=== PATIENT | male | born 1975 | race Two or more races ===

== ENCOUNTER 2024-06-07 19:44 | Emergency (ER) | payer MEDICAID, SELFPAY ==
[2024-06-07 19:56] VITALS: BP 138/91; PULSE 113; RESP 20; TEMP 36.9; O2SAT 93
--- NOTE | 2024-06-07 20:06 | XR_ITS ---
Examination: PA lateral chest 2 views Technique: Upright AP lateral chest 2 views Exam date and time: 06/07/2024 2020 hrs. Comparison October 03, 2023 Indications: Coughing shortness of breath beginning 2 weeks ago. Findings: Stable pulmonary nodule right upper lobe Bilateral perihilar and bibasilar pneumonia Normal heart size Impression: Significant bilateral pneumonia
--- NOTE | 2024-06-07 20:07 | PD.EDRME ---
Rapid Medical Screening Exam [facility] Arrival date/time: 06/07/24 19:44 49M with history of drug/alcohol use presents to ED with 2 weeks of cough and intermittent SOB. Chief Complaint: Flu Like Symptoms Vital signs: Vital Signs Temperature 98.5 F 06/07/24 19:56 Pulse Rate 113 H 06/07/24 19:56 Respiratory Rate 20 06/07/24 19:56 Blood Pressure 138/91 H 06/07/24 19:56 Pulse Oximetry (%) 93 L 06/07/24 19:56 Oxygen Delivery Method Room Air 06/07/24 19:56
--- NOTE | 2024-06-07 20:10 | EDNOTE_ITS ---
Upper Respiratory Inf. RME/HPI General Chief Complaint: Flu Like Symptoms Stated Complaint: FEVER, COUGH, CONGESTION, GLOVER Time Seen by Provider: 06/07/24 20:10 Source: patient Arrival date/time: 06/07/24 19:44 Mode of arrival: ambulatory Limitations: no limitations RME / HPI RME / HPI Narrative: 06/07/24 19:44 49M with history of drug/alcohol use presents to ED with 2 weeks of cough and intermittent SOB. Dr. Lee?s Main ED Evaluation: 49-year-old patient presents to the emergency department with a two-week history of chest discomfort, productive cough with green sputum, headache, fever, and nasal congestion. Initially, symptoms were mild; however, the patient reports a significant worsening today, now experiencing increased shortness of breath. The cough remains productive, with no associated hemoptysis. The patient denies recent travel, sick contacts, or known exposure to tuberculosis. No history of asthma, COPD, or cardiac disease is reported. Past medical history is notable for a prior left closed tibial plateau fracture. Related Data Previous Rx's ?Medication ?Instructions ?Recorded acetaminophen 325 mg tablet 650 mg (2 x 325 mg) PO TID PRN 06/08/24 (Tylenol) fever 5 days #30 tabs albuterol sulfate 90 mcg/actuation 2 puff inhalation Q 6H PRN cough 5 06/08/24 aerosol inhaler days #8.5 grams amoxicillin 875 mg-potassium 1 tab PO BID #20 tabs clavulanate 125 mg tablet Allergies Allergy/AdvReac Type Severity Reaction Status Date / Time NKA* Allergy Uncoded 05/03/17 14:15 Review of Systems Review of Systems Systems Reviewed: All systems reviewed, normal except as documented Past Medical History Past Medical History CARDIAC: Negative Congestive Heart Failure RESPIRATORY: Negative Chronic Obstructive Pulmonary Disease (COPD) GENITOURINARY: Negative Renal Disease ENDOCRINE: Negative Diabetes Mellitus Type 1 or Diabetes Mellitus Type 2 Social History SMOKING STATUS: Former smoker ED Exam General Limitations: Present no limitations General appearance: Present alert and in no apparent distress Head Head exam: Present atraumatic Eye Eye exam: Present normal appearance, PERRL and EOMI ENT ENT exam: Present normal exam, normal oropharynx and mucous membranes moist Neck Neck exam: Present normal inspection, full ROM and trachea midline Chest Chest inspection: Present normal inspection and symmetric chest wall rise Respiratory Respiratory exam: Present normal lung sounds bilaterally Cardiovascular Cardiovascular exam: Present regular rate, normal rhythm and normal heart sounds Abdominal Exam Abdominal exam: Present soft and normal bowel sounds Extremities Exam Extremities exam: Present normal inspection and full ROM Back Exam Back exam: Present normal inspection and full ROM Neurological Exam Neurological exam: Present alert, oriented X3 and CN II-XII intact Psychiatric Psychiatric exam: Present normal affect and normal mood Skin Skin exam: Present warm, dry, intact and normal color Course Course Course Narrative: 2212: Sepsis alert initiated. Orders made at this time are congruent with ED Adult Sepsis Order List. Re-evaluation is to be completed. 2341: NS IVF and Rocephin started. Quality Measures Possible source: pulmonary Blood cultures ordered: yes Antibiotic ordered: Yes Pertinent labs: 06/07/24 20:50 Lactic Acid 1.4 mMol/L (0.4-2.0) Procalcitonin 0.14 ng/ml (0.0-0.49) sepsis Orders Category Date Time Status Bedside COVID-19 Antigen Test NOW Care 06/07/24 20:07 Completed Bedside Influenza A&B Antigen Test NOW Care 06/07/24 19:48 Completed Bedside Influenza A&B Antigen Test NOW Care 06/07/24 20:07 Completed XR chest 2V Stat Exams 06/07/24 20:06 Completed BNP [B-Type Natriuretic Peptide] Stat Lab 06/07/24 20:50 Completed CBC Stat Lab 06/07/24 20:50 Completed CMP [Comprehensive Metabolic Panel] Stat Lab 06/07/24 20:50 Completed Lactate (Lactic Acid) Stat Lab 06/07/24 20:50 Completed Procalcitonin Stat Lab 06/07/24 20:50 Completed Troponin I Stat Lab 06/07/24 20:50 Completed Azithromycin Inj [Zithromax Inj] 500 mg Med 06/07/24 23:16 Discontinued Sodium Chloride 0.9% 250 ml [Ns] 250 ml IV QDAY Azithromycin Inj [Zithromax Inj] 500 mg Med 06/08/24 21:00 Discontinued Sodium Chloride 0.9% 250 ml [Ns] 250 ml IV QDAY@2100 Azithromycin Inj [Zithromax Inj] 500 mg Med 06/07/24 23:30 Discontinued Sodium Chloride 0.9% 250 ml [Ns] 250 ml IV X1 Sodium Chloride 0.9% 1000 ml [Ns] 2,504 ml Med 06/07/24 23:12 Discontinued IV 1,001.6 mls/hr cefTRIAXone [Rocephin] 1,000 mg Med 06/07/24 23:16 Discontinued SODIUM CHLORIDE 0.9% (Popper) [Ns 0.9% (P)] 50 ml IV X1 Vital Signs Vital signs: Vital Signs Temperature 98.5 F 06/07/24 19:56 Pulse Rate 113 H 06/07/24 19:56 Respiratory Rate 20 06/07/24 19:56 Blood Pressure 138/91 H 06/07/24 19:56 Pulse Oximetry (%) 93 L 06/07/24 19:56 Oxygen Delivery Method Room Air 06/07/24 19:56 Upper Respiratory Infection MDM Narrative MDM Narrative:: While in the emergency department the patient screened positive for sepsis. He is placed into a room and IV fluids are started. Patient is treated with ceftriaxone after all cultures. Repeat heart rate at approximately 1110 is down to 105 and he is 95% on room air after DuoNeb treatment. Suspect pneumonia based on the fact that he has had green sputum for the last 2 weeks. White count is 19,000. No abdominal pain and otherwise procalcitonin/lactate is normal. 0307: Patient states he is feeling significantly better. He is able to ambulate without becoming hypoxic. Patient is stable to be discharged home. Scribe Attestation: Vidhi Barroso, am scribing for and in the presence of Dr. Lee. Provider Notation: Although this document has been carefully reviewed, there may still be some phonetic and other typographical errors. These errors are purely grammatical due to imperfections in the software program and should not be construed in any way to compromise the substance of the patient's medical care during this visit. Patient data External records reviewed:: [facility] previous records Clinical information provided by:: patient Social determinants that could affect healthcare access:: substance use Patient has the following chronic illnesses:: see PMH How is presenting disease/condition affected by chronic disease/condition?: uneffected by Evaluation data The following diagnostics were reviewed and interpreted by me:: lab results and radiology exam(s) Lab and/or radiology exams considered but not ordered:: na Interpretation Summary: Examination: PA lateral chest 2 views Technique: Upright AP lateral chest 2 views Exam date and time: 06/07/2024 2020 hrs. Comparison October 03, 2023 Indications: Coughing shortness of breath beginning 2 weeks ago. Findings: Stable pulmonary nodule right upper lobe Bilateral perihilar and bibasilar pneumonia Normal heart size Impression: Significant bilateral pneumonia Dictated By: Gregg Willis MD Medications / Prescriptions Medications or Prescriptions considered but not ordered:: na Medication administrations:: Medication Administration History Discontinued Medications Sodium Chloride (Ns) 2,504 mls @ 1,001.6 mls/hr IV .Q2H30M ONE; Protocol Stop: 06/08/24 01:41 Last Infusion: 06/08/24 02:13 Dose: Infused Documented By: Admin: 06/07/24 23:43 Dose: 1,001.6 mls/hr Documented By: EF Ceftriaxone Sodium 1,000 mg/ (Sodium Chloride) 50 mls @ 100 mls/hr IV X1 ONE Stop: 06/07/24 23:45 Last Infusion: 06/08/24 00:12 Dose: Infused Documented By: Admin: 06/07/24 23:42 Dose: 100 mls/hr Documented By: EF Azithromycin 500 mg/ Sodium (Chloride) 250 mls @ 250 mls/hr IV QDAY JANIS Stop: 06/14/24 23:15 Azithromycin 500 mg/ Sodium (Chloride) 250 mls @ 250 mls/hr IV X1 ONE Stop: 06/08/24 00:29 Last Infusion: 06/08/24 01:17 Dose: Infused Documented By: Admin: 06/08/24 00:17 Dose: 250 mls/hr Documented By: EF Azithromycin 500 mg/ Sodium (Chloride) 250 mls @ 250 mls/hr IV QDAY@2100 JANIS Stop: 06/14/24 23:15 see above Consultations Consultation(s) initiated? (list below): No Diagnosis Upper Respiratory Differential Diagnosis: upper respiratory infection, viral infection and influenza Most likely diagnosis given after review of the tests above:: see clinical impression below Admission Indicated Admission indicated?: not indicated Admission Request Was there a request for admission?: No Disposition Plan Disposition Plan: Discharge Discharge Attestation Discharge Attestation: The patient and all family members were given an opportunity to ask questions and understood the discharge instructions. Discharge instructions specifically effects, indications for sooner follow up or return to the emergency department, and the expected course of current diagnosis. Patient condition: Stable Critical Care Time Critical Care Time Critical Care Time: Yes Total Critical Care Time (min.): 35 Attestation: The high probability of sudden, clinically significant deterioration in the patient?s condition required the highest level of my preparedness to intervene urgently. ? The services I provided to this patient were to treat and/or prevent clinically significant deterioration. Services included the following: chart data review, reviewing nursing notes and/or old charts, documentation time, executive talent acquisition consultant collaboration regarding findings and treatment options, medication orders and management, direct patient care, vital sign assessments and ordering, interpreting and reviewing diagnostic studies and lab tests. ? Aggregate critical care time includes only time during which I was engaged in work directly related to the patient?s care, as described above, whether at bedside or elsewhere in the Emergency Department. It did not include time spent performing other reported procedures or the services of residents, students, nurses or physician assistants. Discharge Plan Plan Patient Disposition: HOME (Self Care) Patient condition on transfer: Stable Prescriptions/Referrals Prescriptions/Med Rec: New amoxicillin-pot clavulanate 875-125 mg tablet 1 tab PO BID Qty: 20 0RF albuterol sulfate 90 mcg/actuation HFA aerosol inhaler 2 puff inhalation Q6H PRN (Reason: cough) 5 Days Qty: 8.5 0RF Rx Instructions: administer with spacer acetaminophen [Tylenol] 325 mg tablet 650 mg PO TID PRN (Reason: fever) 5 Days Qty: 30 0RF Referrals: No Primary/Family,Physician [Primary Care Provider] - In 1 week Problem List Clinical Impression: Pneumonia Patient/Caregiver Discharge Instructions Education Materials: ED Pneumonia (Adult) Additional Instructions: Please take antibiotics as prescribed. You can use the inhaler for cough 4 times a day. Is important that you finish the antibiotics. Avoid smoking or vaping or can make your symptoms worse. You can take [id number] Tylenol 650 mg 4 times a day as needed while you are on antibiotics. On your x-ray they saw an incidental pulmonary nodule that has been there and it has not grown in size. However you will need to follow-up with your primary care in the next 2 weeks so that you can get a plan so that they can follow this nodule. Failure to follow-up with primary care can lead to missed diagnosis and/or . If you do not have a primary care physician you can go to the [facility]. It does not matter if you have insurance or not they take all patients. [facility] [address], [place] [id number] Hours: Monday - Monday, 8 AM - 4:30 PM (Closed 12 PM - 1 PM) Contact Us: Print Language: Lao Stand Alone Forms: Eliana Award Info., Work/School Release, Patient Portal Info Letter
[2024-06-07 21:16] LABS: Lactate (Lactic Acid) 1.4 mMol/L (0.4-2.0)
[2024-06-07 21:47] LABS: Basophils # (Auto) 0.1 Thou/mm3 (0.0-0.2); Basophils % (Auto) 0 % (0-2.5); Eosinophils # (Auto) 0.3 Thou/mm3 (0.0-0.5); Eosinophils % (Auto) 2 % (0-10); Hematocrit 48.9 % (41.0-53.0); Hemoglobin 16.8 g/dL (13.5-16.0); Immature Granulocytes % (Auto) 0 % (0-0); Immature Granulocytes Auto 0.06 Thou/mm3 (0.00-0.00); Lymphocytes # (Auto) 1.9 Thou/mm3 (1.0-4.8); Lymphocytes % (Auto) 10 % (10-50); Mean Corpuscular HGB Conc 34.4 g/dl (31.0-37.0); Mean Corpuscular Hemoglobin 32.2 pg (25.0-35.0); Mean Corpuscular Volume 94 fL (80-100); Monocytes # (Auto) 0.8 Thou/mm3 (0.0-0.8); Monocytes % (Auto) 4 % (0-12); Neutrophils # (Auto) 16.1 Thou/mm3 (1.8-7.7); Neutrophils % (Auto) 84 % (37-80); Nucleated Red Blood Cell % 0 /100 WBC (0); Platelet Count 300 Thou/mm3 (140-440); RDW Standard Deviation 42.4 fL (35.1-43.9); Red Blood Count 5.21 Miln/mm3 (4.50-5.90); White Blood Count 19.3 Thou/mm3 (3.8-10.6)
[2024-06-07 21:50] LABS: Alanine Aminotransferase 21 U/L (10-49); Albumin, Serum 4.6 gm/dL (3.5-5.0); Albumin/Globulin Ratio 1.6 (1.2-2.2); Alkaline Phosphatase 84 U/L (46-116); Anion Gap 9 (7-16); Aspartate Amino Transferase 17 U/L (0-34); BUN/Creatinine Ratio 10 Ratio (12-20); Bilirubin,Total 0.8 mg/dL (0.3-1.2); Blood Urea Nitrogen 9 mg/dL (9-23); Calcium 9.3 mg/dL (8.3-10.6); Calcium (Corrected) 9.3 mg/dL (8.5-10.1); Carbon Dioxide 28.6 mMol/L (20.0-31.0); Chloride 99 mMol/L (98-107); Creatinine (Component) 0.9 mg/dL (0.6-1.3); Globulin 2.9 gm/dL (2.3-3.5); Glucose 110 mg/dL (74-106); Osmolality,Calculated 273 (275-295); Potassium 4.5 mMol/L (3.4-5.1); Procalcitonin 0.14 ng/ml (0.0-0.49); Sodium 137 mMol/L (136-145); Total Protein 7.5 gm/dL (5.7-8.2); Troponin I < 0.002 ng/mL (0.0-0.045); eGFR > 60 See Note
[2024-06-07 22:15] VITALS: BP 109/67; PULSE 124; RESP 19; TEMP 37.3; O2SAT 93
[2024-06-07 22:15] LABS: B-Type Natriuretic Peptide < 20 pg/mL (0-100)
[2024-06-07] MEDS: cefTRIAXone 1,000 MG in SODIUM CHLORIDE 0.9% (Popper) 50 ML 100 MG IV (23:42)
[2024-06-07] MEDS: SODIUM CHLORIDE 0.9% 1001.6 ML IV (23:43)
[2024-06-08] MEDS: AZITHROMYCIN INJ 500 MG in SODIUM CHLORIDE 0.9% 250 ML 250 ML 250 MG IV (00:17)
[2024-06-08 01:03] VITALS: BP 107/74; PULSE 104; RESP 19; TEMP 37; O2SAT 98
[2024-06-08 03:32] VITALS: BP 133/89; PULSE 95; RESP 17; TEMP 36.8; O2SAT 96
== END 2024-06-08 03:33 | disposition home or self-care (01) ==
PROVIDERS: Physician Assistant; Emergency Provider Emergency Medicine
DX: J18.9 Pneumonia, unspecified organism (principal); Z87.891 Personal history of nicotine dependence
CPT/HCPCS: 36415; 71046; 80053; 83605; 83880; 84145; 84484; 85025; 87400; 87811; 96365; 96367; 99284; J0456; J0696; J7030; J7050